=== PATIENT | female | born 1980 | race Two or more races ===

== ENCOUNTER 2022-07-11 09:58 | Outpatient (CLI) | payer OTHER | END 2022-07-11 10:02 | disposition home or self-care (01) | LOC: LAB 09:58 | PROVIDERS: ATTEND Internal Medicine Hematology & Oncology | DX: D50.8 Other iron deficiency anemias (principal); R79.9 Abnormal finding of blood chemistry, unspecified; I10 Essential (primary) hypertension; R74.02 Elevation of levels of lactic acid dehydrogenase [LDH]; K76.89 Other specified diseases of liver; D63.8 Anemia in other chronic diseases classified elsewhere; D55.0 Anemia due to glucose-6-phosphate dehydrogenase [G6PD] deficiency; D51.1 Vitamin B12 deficiency anemia due to selective vitamin B12 malabsorption with proteinuria; D51.0 Vitamin B12 deficiency anemia due to intrinsic factor deficiency; E03.8 Other specified hypothyroidism; E06.3 Autoimmune thyroiditis; D51.3 Other dietary vitamin B12 deficiency anemia; K29.70 Gastritis, unspecified, without bleeding; K44.9 Diaphragmatic hernia without obstruction or gangrene; G51.0 Bell's palsy; U07.1 COVID-19; N39.0 Urinary tract infection, site not specified ==

== ENCOUNTER 2022-10-22 09:19 | Outpatient (CLI) | payer OTHER | END 2022-10-22 09:28 | disposition home or self-care (01) | LOC: LAB 09:19 | PROVIDERS: ATTEND Internal Medicine Hematology & Oncology | DX: D50.8 Other iron deficiency anemias (principal); R79.9 Abnormal finding of blood chemistry, unspecified; I10 Essential (primary) hypertension; R74.02 Elevation of levels of lactic acid dehydrogenase [LDH]; K76.89 Other specified diseases of liver; M32.9 Systemic lupus erythematosus, unspecified; M06.9 Rheumatoid arthritis, unspecified; M35.00 Sjogren syndrome, unspecified; K74.3 Primary biliary cirrhosis; M34.81 Systemic sclerosis with lung involvement; M33.20 Polymyositis, organ involvement unspecified; M05.9 Rheumatoid arthritis with rheumatoid factor, unspecified; D51.1 Vitamin B12 deficiency anemia due to selective vitamin B12 malabsorption with proteinuria; D51.3 Other dietary vitamin B12 deficiency anemia; K29.70 Gastritis, unspecified, without bleeding; K44.9 Diaphragmatic hernia without obstruction or gangrene; G51.0 Bell's palsy; E55.9 Vitamin D deficiency, unspecified; N95.1 Menopausal and female climacteric states; N95.9 Unspecified menopausal and perimenopausal disorder ==

== ENCOUNTER 2022-11-19 13:37 | Outpatient (CLI) | payer OTHER | END 2022-11-19 13:52 | disposition home or self-care (01) | LOC: MAMO-SONO 13:37 | PROVIDERS: ATTEND Obstetrics & Gynecology | DX: N60.11 Diffuse cystic mastopathy of right breast (principal); N60.12 Diffuse cystic mastopathy of left breast ==

== ENCOUNTER 2023-05-23 16:03 | Emergency (ER) | payer OTHER ==
[~2023-05-23] VITALS: Ht 170.2 cm; Wt 95.3 kg
== END 2023-05-23 22:56 | disposition home or self-care (01) ==
LOC: ER 16:04
DX: G51.0 Bell's palsy (principal)

== ENCOUNTER 2023-07-31 08:48 | Outpatient (CLI) | payer OTHER ==
[2023-07-31 10:49] LABS: HEMATOCRIT 34.9 % (36.0-45.00); HEMOGLOBIN 11.9 g/dL (12.0-15.00); MEAN CELL VOLUME 90.5 fL (80.00-100.00); MEAN CORPUSCULAR HEMOGLOBIN 30.9 pg (27.00-32.0); MEAN CORPUSCULAR HGB CONC 34.1 g/dl (32.0-36.0); PLATELET COUNT 249 K/uL (150-450); RED BLOOD COUNT 3.85 M/uL (4.00-6.00); RED CELL DISTRIBUTION WIDTH 14.3 % (11.5-14.5)
[2023-07-31 10:58] LABS: INR 1.05; PARTIAL THROMBOPLASTIN TIME 27.6 SECONDS (22.0-34.0)
[2023-07-31 11:06] LABS: ALBUMIN 3.3 gm/dL (3.4-5.0); BILIRUBIN TOTAL 0.48 mg/dL (0.3-1.2); CALCIUM 8.8 mg/dL (8.5-10.1); CREATININE SERUM 0.57 mg/dL (0.55-1.02); GFR 116.32; GLOBULINA 3.5 G/DL (2.4-3.5); POTASSIUM 4.16 mEq/L (3.5-5.1); TOTAL PROTEIN 6.8 gm/dL (6.4-8.2)
[2023-07-31 11:36] LABS: PTT 50:50 27.7 SECONDS (22.4-33.0)
[2023-07-31 11:38] LABS: COL EPI 131 SECONDS (82-175)
[2023-08-02 07:55] LABS: MANUAL PLATELET COUNT 584
[2023-08-02 07:57] LABS: PLATELET ESTIMATE NORMAL (NORMAL)
== END 2023-07-31 08:54 | disposition home or self-care (01) ==
LOC: LAB 08:48
PROVIDERS: ATTEND Internal Medicine Hematology & Oncology
DX: D51.1 Vitamin B12 deficiency anemia due to selective vitamin B12 malabsorption with proteinuria (principal); D51.3 Other dietary vitamin B12 deficiency anemia; K29.70 Gastritis, unspecified, without bleeding; K44.9 Diaphragmatic hernia without obstruction or gangrene; G51.0 Bell's palsy; E55.9 Vitamin D deficiency, unspecified; E04.2 Nontoxic multinodular goiter; R44.8 Other symptoms and signs involving general sensations and perceptions; D52.0 Dietary folate deficiency anemia; D52.8 Other folate deficiency anemias

== ENCOUNTER → 2023-11-19 08:08 | Outpatient (CLI) | payer OTHER ==
[2023-11-19 09:21] LABS: PH,URINE 5.5 (5.0-8.0); URINE APPEARANCE Clear; URINE BILIRRUBIN Negative (NEGATIVE); URINE BLOOD Negative; URINE COLOR Yellow; URINE GLUCOSE Negative (NEGATIVE); URINE LEUKOCYTE Negative; URINE NITRATE Negative; URINE PROTEIN Negative (NEGATIVE); URINE UROBILINOGEN 0.2 E.U./dl
[2023-11-19 09:23] LABS: URINE BACTERIA 172.5 uL (0.0-1933); URINE EPITHELIAL CELLS 6.1 uL (0.0-38.8); URINE RBC 6.7 uL (0.0-20.8)
[2023-11-19 09:53] LABS: HEMATOCRIT 34.1 % (36.0-45.00); HEMOGLOBIN 11.7 g/dL (12.0-15.00); MEAN CELL VOLUME 90.7 fL (80.00-100.00); MEAN CORPUSCULAR HGB CONC 34.2 g/dl (32.0-36.0); PLATELET COUNT 284 K/uL (150-450); RED BLOOD COUNT 3.76 M/uL (4.00-6.00); RED CELL DISTRIBUTION WIDTH 14.9 % (11.5-14.5)
[2023-11-19 10:41] LABS: ALBUMIN 3.5 gm/dL (3.4-5.0); BILIRUBIN TOTAL 0.31 mg/dL (0.3-1.2); CALCIUM 8.6 mg/dL (8.5-10.1); CHOL HDL RATIO 3.8 (0-5.0); CREATININE SERUM 0.49 mg/dL (0.55-1.02); GFR 138.5; GLOBULINA 3.3 G/DL (2.4-3.5); POTASSIUM 4.15 mEq/L (3.5-5.1); TOTAL PROTEIN 6.8 gm/dL (6.4-8.2)
[2023-11-19 11:03] LABS: TSH 1.29 uIU/mL (0.358-3.74)
[2023-11-21 09:05] LABS: FOLLICLE STIMULATING HORMONE 14.4 mIU/mL (.); PROLACTIN 8.2 ng/mL (4.8-33.4)
[2023-11-21 13:09] LABS: HSV I IGG TYPE SPECIFIC 4.23 index (0.00-0.90)
[2023-11-22 13:06] LABS: hav igm Negative (Negative); hcv Non Reactive (Non Reactive); hep b c Negative (Negative)
[2023-11-24 23:09] LABS: ESTROGENO 295 pg/mL (.)
[2023-11-25 13:07] LABS: T T 24 ng/dL (4-50); test free 1.4 pg/mL (0.0-4.2)
== END | disposition home or self-care (01) ==
LOC: LAB 08:08
PROVIDERS: ATTEND Obstetrics & Gynecology
DX: A63.8 Other specified predominantly sexually transmitted diseases (principal); N95.1 Menopausal and female climacteric states; N95.9 Unspecified menopausal and perimenopausal disorder; E78.00 Pure hypercholesterolemia, unspecified; E55.9 Vitamin D deficiency, unspecified